=== PATIENT | female | born 1935 | race Two or more races ===

== ENCOUNTER 2021-06-30 17:25 | Inpatient (IN) | payer OTHER ==
[~2021-06-30] VITALS: Ht 157.5 cm; Wt 45.2 kg
[2021-06-30 17:23] VITALS: BP 136/73
[2021-06-30] MEDS ORDERED: NOREPINEPHRINE 8 MG/250ML KIT 250 ML IV ONE (17:30)
[2021-06-30] MEDS ORDERED: MIDAZOLAM DRIP 50 mg/50mL 0 ML IV ONE (17:30)
[2021-06-30] MEDS ORDERED: SODIUM BICARBONATE 8.4% INJ 50ML SYRINGE ONE ×3 (17:42→18:02)
[2021-06-30] MEDS: NOREPINEPHRINE 8 MG/250ML KIT 250 ML IV SCH ×2 (17:43→19:10)
[2021-06-30] MEDS ORDERED: SODIUM BICARBONATE 8.4 % INJ 50ML VIAL IV ONE ×2 (18:00→18:45)
[2021-06-30] MEDS ORDERED: FUROSEMIDE 40 MG/4 ML VIAL IV ONE (18:30)
[2021-06-30 19:00] LABS: Basophils # (auto) 0 10 ^3/uL (0-0.2); Basophils % (auto) 0.4 % (0.0-2.0); Eosinophils # (auto) 0.1 10 ^3/uL (0-0.8); Hematocrit 26.9 % (36.0-46.0); Hemoglobin 8.6 g/dL (12.2-16.2); Lymphocytes # (auto) 2.1 10 ^3/uL (0.4-5.4); Lymphocytes % (auto) 23.8 % (10.0-50.0); Mean Corpuscular Hemoglobin 32.5 pg (28.0-32.0); Mean Corpuscular Hgb Conc. 32.1 g/dL (32.0-36.0); Mean Corpuscular Volume 101.1 fL (80.0-100.0); Monocytes # (auto) 0.3 10 ^3/uL (0-1.3); Monocytes % (auto) 3.2 % (0.0-12.0); Neutrophils # (auto) 6.3 10 ^3/uL (1.6-8.6); Neutrophils % (auto) 71.6 % (37.0-80.0); Nucleated Red Blood Cells % 0.1 %; Red Blood Cells 2.66 10^6/uL (4.0-5.20); Red Cell Distribution Width 15.4 % (11.8-14.3); White Blood Cell 8.8 10^3/uL (4.4-10.8)
[2021-06-30] MEDS ORDERED: MIDAZOLAM DRIP 50 mg/50mL 50 ML IV ONE (19:04)
[2021-06-30] MEDS: MIDAZOLAM DRIP 50 mg/50mL 50 ML IV SCH (19:10)
[2021-06-30 19:21] LABS: Albumin 1.8 g/dL (3.4-5.0); BUN/Creatinine Ratio 17.2; Calcium 8.8 mg/dL (8.5-10.1); Lactic Acid w/Reflex 14.2 mmol/L (0.4-2.0); Potassium 3.8 mmol/L (3.5-5.1)
[2021-06-30 19:24] LABS: Bilirubin, Total 0.4 mg/dL (0.2-1.0)
[2021-06-30] MEDS ORDERED: cefTRIAXone 1GM/50ML D5W 50 ML IV ONE (19:45)
[2021-06-30] MEDS ORDERED: methylPREDNISolone SOD SUCC 125 MG/2 ML VL IV ONE (19:45)
[2021-06-30] MEDS ORDERED: AZITHROMYCIN 500MG/ 250ML 250 ML IV ONE (19:45)
[2021-06-30 20:00] VITALS: BP 105/51
[2021-06-30 20:13] LABS: CRP High Sensitivity < 0.02 mg/dL (< 0.3)
[2021-06-30 22:00] VITALS: BP 110/58
[2021-06-30] MEDS ORDERED: IOHEXOL 350 MG/ML 100ML IJ ONE (22:44)
[2021-06-30] MEDS ORDERED: MORPHINE SULFATE 4 MG/ML SYR/VIAL IV PRN (22:45)
[2021-06-30] MEDS ORDERED: LORazepam 2MG/ML-1ML VIAL IV PRN (22:45)
[2021-06-30] MEDS ORDERED: DEXTROSE (50%) 50ML SYRG IV PRN (23:00)
[2021-06-30] MEDS ORDERED: NITROGLYCERIN 0.4 MG SL TAB SL PRN (23:15)
[2021-06-30] MEDS ORDERED: MORPHINE SULFATE INJECTION 2 MG/ML SYRG IV PRN (23:15)
[2021-06-30 23:18] VITALS: BP 112/55
[2021-06-30 23:55] VITALS: BP 112/55
[2021-07-01] VITALS (51 sets, daily range): BP systolic 90–153; BP diastolic 49–92
[2021-07-01] MEDS: ACCU-CHEK COMFORT CURVE STRIP VI SCH ×4 (00:30→18:12)
[2021-07-01] MEDS: InsuLIN REG 1unit/0.01ml Soln (100units/ml) SC SCH ×4 (00:30→18:11)
[2021-07-01 00:31] LABS: Albumin 2.1 g/dL (3.4-5.0); Calcium 7.8 mg/dL (8.5-10.1); Magnesium 1.9 mg/dL (1.6-2.6); Potassium 4.3 mmol/L (3.5-5.1)
[2021-07-01 00:32] LABS: Lactic Acid w/Reflex 10.4 mmol/L (0.4-2.0)
[2021-07-01 00:33] LABS: BUN/Creatinine Ratio 18.5; CRP High Sensitivity 0.03 mg/dL (< 0.3)
[2021-07-01 00:36] LABS: Bilirubin, Total 0.6 mg/dL (0.2-1.0); Total Protein 4.8 g/dL (6.4-8.2)
[2021-07-01 00:51] LABS: Thyroid Stimulating Hormone 2.5 uIU/mL (0.358-3.74)
[2021-07-01] MEDS: ALBUTEROL SULF 2.5 MG/0.5ML(0.5%) NEB SOLN NEB SCH ×6 (01:52→22:00)
[2021-07-01] MEDS: IPRATROPIUM BROM 0.5 MG/2.5ML INH SOL NEB SCH ×6 (01:52→22:00)
[2021-07-01] MEDS ORDERED: HEPARIN SODIUM (PORCINE) 5000 UNITS/ML 1ML VIAL IV ONE (02:45)
[2021-07-01 04:08] LABS: INR 1.75 (0.9-1.15)
[2021-07-01 05:15] LABS: Basophils # (auto) 0 10 ^3/uL (0-0.2); Basophils % (auto) 0.1 % (0.0-2.0); Eosinophils # (auto) 0 10 ^3/uL (0-0.8); Hematocrit 30.3 % (36.0-46.0); Hemoglobin 9.9 g/dL (12.2-16.2); Lymphocytes # (auto) 0.7 10 ^3/uL (0.4-5.4); Lymphocytes % (auto) 3.9 % (10.0-50.0); Mean Corpuscular Hemoglobin 32.8 pg (28.0-32.0); Mean Corpuscular Hgb Conc. 32.7 g/dL (32.0-36.0); Mean Corpuscular Volume 100.2 fL (80.0-100.0); Monocytes # (auto) 1.1 10 ^3/uL (0-1.3); Monocytes % (auto) 6.1 % (0.0-12.0); Neutrophils # (auto) 16.9 10 ^3/uL (1.6-8.6); Neutrophils % (auto) 89.9 % (37.0-80.0); Nucleated Red Blood Cells % 0.1 %; Red Blood Cells 3.02 10^6/uL (4.0-5.20); Red Cell Distribution Width 15.7 % (11.8-14.3); White Blood Cell 18.7 10^3/uL (4.4-10.8)
[2021-07-01] MEDS: HEPARIN DRIP/D5W 100UNITS/ML 250 ML IV SCH (05:16)
[2021-07-01 06:36] LABS: Urine Bacteria NONE SEEN /hpf (None Seen); Urine Blood 3+ /uL (Negative); Urine Specific Gravity 1.014 (1.001-1.035); Urine WBC 87 /hpf (0 - 5)
[2021-07-01] MEDS ORDERED: SODIUM CHLORIDE 0.9% 1,000 ML IV SCH (08:00)
[2021-07-01 09:15] LABS: Hematocrit 29.2 % (36.0-46.0); Hemoglobin 9.6 g/dL (12.2-16.2); Mean Corpuscular Hemoglobin 32.8 pg (28.0-32.0); Mean Corpuscular Hgb Conc. 32.8 g/dL (32.0-36.0); Red Blood Cells 2.92 10^6/uL (4.0-5.20); Red Cell Distribution Width 15.8 % (11.8-14.3); White Blood Cell 21.8 10^3/uL (4.4-10.8)
[2021-07-01 09:28] LABS: Basophils % (manual) 0 (0.0-2.0); Blast Cells 0; Eosinophils % (manual) 0 (0-7); Promyelocytes % 0; Reactive Lymphocytes 0
[2021-07-01 09:32] LABS: Albumin 1.9 g/dL (3.4-5.0); Calcium 7.3 mg/dL (8.5-10.1)
[2021-07-01 09:35] LABS: BUN/Creatinine Ratio 17.4; Bilirubin, Total 0.5 mg/dL (0.2-1.0); Total Protein 4.4 g/dL (6.4-8.2)
[2021-07-01] MEDS: AZITHROMYCIN 500MG/ 250ML 250 ML IV SCH (09:39)
[2021-07-01 09:49] LABS: INR 1.81 (0.9-1.15)
[2021-07-01 10:05] LABS: Partial Thromboplastin Time > 139.0 sec (23.6-33.0)
[2021-07-01] MEDS: DexAMETHasone SOD PHOS 10MG/1ML VIAL INJ IV SCH (10:20)
[2021-07-01 10:56] LABS: Band Neutrophils % (manual) 17; Lymphocytes % (manual) 2 (10.0-50.0); Metamyelocytes % 1; Monocytes % (manual) 3 (0-12); Myelocytes % 1
[2021-07-01] MEDS ORDERED: DOPamine 1600MCG/ML D5W 250 ML IV SCH (13:00)
[2021-07-01] MEDS: SODIUM BICARBONATE 50ML VIAL 50 ML in SOD CHL 0.45% 1,000 ML IV SCH (14:38)
[2021-07-01 14:55] LABS: Sodium Urine 124 mmol/L (40-220)
[2021-07-01] MEDS ORDERED: DONE5TAB80 PO (14:55)
[2021-07-01] MEDS ORDERED: ATOR10TA52 PO (14:55)
[2021-07-01] MEDS ORDERED: SODI650T PO (14:55)
[2021-07-01] MEDS ORDERED: METO-289 PO (14:55)
[2021-07-01] MEDS ORDERED: NIFE-3 PO (14:55)
[2021-07-01] MEDS ORDERED: LISI20TA28 PO (14:55)
[2021-07-01] MEDS ORDERED: ALEN70TA74 PO (14:55)
[2021-07-01] MEDS ORDERED: CALC0.5C PO (14:55)
[2021-07-01 14:56] LABS: Creatinine, Urine < 30.0 mg/dL (30.0-125.0)
[2021-07-01 15:10] LABS: Protein, Urine 91.6 mg/dL (0.0-11.9)
[2021-07-01] MEDS ORDERED: SODIUM BICARBONATE 8.4% INJ 50ML SYRINGE IV ONE (15:13)
[2021-07-01] MEDS ORDERED: CALCIUM CHLOR(10%) 100MG/ML 10ML SYRINGE IV ONE (15:13)
[2021-07-01] MEDS ORDERED: EPINEPHrine HCL 1 MG/10 ML SYRG IV ONE (15:13)
[2021-07-01] MEDS ORDERED: FERR-20 PO (16:49)
[2021-07-01] MEDS ORDERED: CALC0.25 PO (16:55)
[2021-07-01] MEDS ORDERED: LOSA-39 PO (16:56)
[2021-07-01] MEDS: MIDAZOLAM DRIP 50 mg/50mL 50 ML IV SCH (21:00)
[2021-07-01] MEDS: ALBUMIN 25% 100 ML IV SCH (22:00)
[2021-07-01] MEDS ORDERED: ATORVASTATIN 20 MG TAB PO SCH (22:00)
[2021-07-02] VITALS (51 sets, daily range): BP systolic 75–133; BP diastolic 25–77
[2021-07-02] MEDS ORDERED: cefTRIAXone 1GM/50ML D5W 50 ML IV SCH
[2021-07-02] MEDS: SODIUM BICARBONATE 50ML VIAL 50 ML in SOD CHL 0.45% 1,000 ML IV SCH ×2 (01:50→12:30)
[2021-07-02] MEDS: IPRATROPIUM BROM 0.5 MG/2.5ML INH SOL NEB SCH (02:40)
[2021-07-02] MEDS: ALBUTEROL SULF 2.5 MG/0.5ML(0.5%) NEB SOLN NEB SCH (02:40)
[2021-07-02] MEDS: HEPARIN DRIP/D5W 100UNITS/ML 250 ML IV SCH (02:45)
[2021-07-02] MEDS: NOREPINEPHRINE 8 MG/250ML KIT 250 ML IV SCH (02:46)
[2021-07-02 05:56] LABS: Basophils # (auto) 0 10 ^3/uL (0-0.2); Eosinophils # (auto) 0 10 ^3/uL (0-0.8); Red Cell Distribution Width 15.4 % (11.8-14.3); White Blood Cell 21.8 10^3/uL (4.4-10.8)
[2021-07-02] MEDS: ACCU-CHEK COMFORT CURVE STRIP VI SCH ×3 (06:00→12:31)
[2021-07-02] MEDS: InsuLIN REG 1unit/0.01ml Soln (100units/ml) SC SCH ×3 (06:00→12:31)
[2021-07-02 06:13] LABS: Potassium 4.2 mmol/L (3.5-5.1)
[2021-07-02 06:25] LABS: Basophils % (auto) 0.2 % (0.0-2.0); Hematocrit 22.8 % (36.0-46.0); Hemoglobin 7.6 g/dL (12.2-16.2); Lymphocytes # (auto) 0.5 10 ^3/uL (0.4-5.4); Lymphocytes % (auto) 2.5 % (10.0-50.0); Mean Corpuscular Hemoglobin 32.1 pg (28.0-32.0); Mean Corpuscular Hgb Conc. 33.3 g/dL (32.0-36.0); Mean Corpuscular Volume 96.3 fL (80.0-100.0); Monocytes # (auto) 1.2 10 ^3/uL (0-1.3); Monocytes % (auto) 5.4 % (0.0-12.0); Neutrophils % (auto) 91.9 % (37.0-80.0); Red Blood Cells 2.36 10^6/uL (4.0-5.20)
[2021-07-02 06:27] LABS: Albumin 2.5 g/dL (3.4-5.0); BUN/Creatinine Ratio 16.9; Bilirubin, Total 0.5 mg/dL (0.2-1.0); CRP High Sensitivity 10.3 mg/dL (< 0.3); Calcium 7.1 mg/dL (8.5-10.1)
[2021-07-02] MEDS: DexAMETHasone SOD PHOS 10MG/1ML VIAL INJ IV SCH (09:39)
[2021-07-02] MEDS: ALBUMIN 25% 100 ML IV SCH (09:43)
[2021-07-02] MEDS: AZITHROMYCIN 500MG/ 250ML 250 ML IV SCH (09:44)
[2021-07-02] MEDS ORDERED: ASPirin 81 mg TAB PO SCH (10:00)
[2021-07-02] MEDS ORDERED: SODIUM BICARBONATE 8.4% INJ 50ML SYRINGE IV ONE (16:17)
[2021-07-02] MEDS ORDERED: EPINEPHrine HCL 1 MG/10 ML SYRG IV ONE (16:17)
== END 2021-07-02 16:35 | DRG 871 ==
LOC: ER 17:25 → EDBD 17:25 → TELE 23:02 → DOU IN ICU 07-01 11:29
PROVIDERS: ADMIT Hospitalist; ATTEND Hospitalist
PROC: 5A1945Z Respiratory Ventilation, 24-96 Consecutive Hours (ICD-10-PCS; principal; 2021-06-30)
PROC: 0BH17EZ Insertion of Endotracheal Airway into Trachea, Via Natural or Artificial Opening (ICD-10-PCS; 2021-06-30)
PROC: 5A12012 Performance of Cardiac Output, Single, Manual (ICD-10-PCS; 2021-06-30)
PROC: 06HM33Z Insertion of Infusion Device into Right Femoral Vein, Percutaneous Approach (ICD-10-PCS; 2021-06-30)
PROC: 0W9930Z Drainage of Right Pleural Cavity with Drainage Device, Percutaneous Approach (ICD-10-PCS; 2021-06-30)
DX: A41.89 Other specified sepsis (principal); U07.1 COVID-19; I21.4 Non-ST elevation (NSTEMI) myocardial infarction; J12.82 Pneumonia due to coronavirus disease 2019; J96.01 Acute respiratory failure with hypoxia; J96.02 Acute respiratory failure with hypercapnia; E87.0 Hyperosmolality and hypernatremia; I13.0 Hypertensive heart and chronic kidney disease with heart failure and stage 1 through stage 4 chronic kidney disease, or unspecified chronic kidney disease; M96.89 Other intraoperative and postprocedural complications and disorders of the musculoskeletal system; S27.0XXA Traumatic pneumothorax, initial encounter; N17.9 Acute kidney failure, unspecified; I46.9 Cardiac arrest, cause unspecified; D63.1 Anemia in chronic kidney disease; I50.9 Heart failure, unspecified; Z66 Do not resuscitate; E11.22 Type 2 diabetes mellitus with diabetic chronic kidney disease; E11.65 Type 2 diabetes mellitus with hyperglycemia; F03.90 Unspecified dementia, unspecified severity, without behavioral disturbance, psychotic disturbance, mood disturbance, and anxiety; N18.9 Chronic kidney disease, unspecified; I25.10 Atherosclerotic heart disease of native coronary artery without angina pectoris; Y84.8 Other medical procedures as the cause of abnormal reaction of the patient, or of later complication, without mention of misadventure at the time of the procedure; Y92.89 Other specified places as the place of occurrence of the external cause
CPT/HCPCS: 36415; 36600; 71045; 71275; 76775; 80053; 81001; 82570; 82728; 82805; 82962; 83605; 83615; 83735; 84156; 84300; 84443; 84484; 85007; 85025; 85027; 85379; 85610; 85730; 86141; 87040; 87070; 87077; 87081; 87205; 87426; 87493; 93005; 93306; 94002; 94003; 94640; 96365; 96366; 96367; 96375; 96376; 99291; G0378; J0696; J1100; J2250; P9047